=== PATIENT | male | born 2000 | race Caucasian/White ===

== ENCOUNTER 2021-10-22 13:11 | Emergency (ER) | payer MEDICAID ==
[2021-10-22 13:46] LABS: BASOPHILS % (AUTO) 0.4 %; EOSINOPHILS # (AUTO) 0.1 10^3/uL (0.0-0.7); HCT - HEMATOCRIT 45.7 % (42.0-52.0); HGB - HEMOGLOBIN 15.9 g/dL (14.0-18.0); LYMPHOCYTES # (AUTO) 1.8 10^3/uL (1.5-3.5); LYMPHOCYTES % (AUTO) 25.7 %; MEAN CORPUSCULAR HEMOGLOBIN 33.3 pg (27.0-31.0); MEAN CORPUSCULAR HGB CONC 34.8 g/dL (32.0-36.0); MEAN CORPUSCULAR VOLUME 95.6 fL (80.0-94.0); MEAN PLATELET VOLUME 9.4 fL (7.4-11.4); MONOCYTES # (AUTO) 0.7 10^3/uL (0.0-1.0); MONOCYTES % (AUTO) 10.2 %; NEUTROPHILS # (AUTO) 4.5 10^3/uL (1.5-6.6); NEUTROPHILS % (AUTO) 62.6 %; PLT - PLATELET COUNT 223 10^3/uL (130-450); RED BLOOD COUNT 4.78 10^6/uL (4.70-6.10); RED CELL DISTRIBUTION WIDTH 11.9 % (12.0-15.0); WHITE BLOOD COUNT 7.1 x10^3/uL (4.8-10.8)
[2021-10-22 13:59] LABS: ALBUMIN 4.6 g/dL (3.2-5.5); ALBUMIN/GLOBULIN RATIO 1.5 (1.0-2.2); BILIRUBIN,TOTAL 0.5 mg/dL (0.2-1.0); CALCIUM 9.4 mg/dL (8.5-10.3); POTASSIUM 3.9 mmol/L (3.5-5.0); TOTAL PROTEIN 7.6 g/dL (6.7-8.2)
[2021-10-22 14:18] LABS: BILIRUBIN,URINE NEGATIVE (NEGATIVE); GLUCOSE, URINE (UA) NEGATIVE (NEGATIVE); KETONES,URINE (UA) NEGATIVE (NEGATIVE); LEUKOCYTE ESTERASE, URINE NEGATIVE (NEGATIVE); NITRITE,URINE NEGATIVE (NEGATIVE); OCCULT BLOOD,URINE NEGATIVE (NEGATIVE); PROTEIN,URINE NEGATIVE (NEGATIVE); UROBILINOGEN,URINE 0.2 (NORMAL) E.U./dL (NORMAL)
[2021-10-22 14:20] LABS: CLARITY,URINE CLEAR (CLEAR)
--- NOTE | 2021-10-22 15:28 | ED Physician Documentation ---
PD HPI ABD PAIN - Stated complaint Stated Complaint: LT SIDE PX - Chief complaint Chief Complaint: Abd Pain - History obtained from History obtained from: Patient - Additional information Additional information: Patient comes emergency department for chief complaint of left flank pain for 3 days. He states that when he feels pain it is a sharp pain, but unless he moves, he does not really have any pain at all. No other symptoms accompanying. No fevers or chills. No nausea, vomiting, dysuria, or right-sided abdominal pain. No constipation. The patient has occasional watery diarrhea, but this is inconsistent. He has not been doing any physical labor lately. No blood in his urine. Patient has no history of kidney stones. No history of diverticulitis. No other complaints at this time. Review of Systems Ten Systems: 10 systems reviewed and negative Constitutional: reports: Reviewed and negative Eyes: reports: Reviewed and negative Ears: reports: Reviewed and negative Nose: reports: Reviewed and negative Throat: reports: Reviewed and negative Cardiac: reports: Reviewed and negative Respiratory: reports: Reviewed and negative GI: reports: Abdominal Pain, Reviewed and negative : reports: Reviewed and negative Skin: reports: Reviewed and negative Musculoskeletal: reports: Reviewed and negative Neurologic: reports: Reviewed and negative Psychiatric: reports: Reviewed and negative Endocrine: reports: Reviewed and negative Immunocompromised: reports: Reviewed and negative PD PAST MEDICAL HISTORY - Present Medications Home Medications: Ambulatory Orders Medication Instructions Recorded Confirmed No Known Home Medications 10/22/21 10/22/21 - Allergies Allergies/Adverse Reactions: Allergies Allergy/AdvReac Type Severity Reaction Status Date / Time No Known Drug Allergies Allergy Verified 10/22/21 13:20 PD ED PE NORMAL - Vitals Vital signs reviewed: Yes - General General: Alert and oriented X 3, No acute distress, Well developed/nourished - HEENT HEENT: Atraumatic, PERRL, EOMI, Moist mucous membranes - Neck Neck: Supple, no meningeal sign - Cardiac Cardiac: RRR, No murmur, Strong equal pulses - Respiratory Respiratory: No respiratory distress, Clear bilaterally - Abdomen Abdomen: Soft, Non distended, Other (Left flank tenderness.) - Derm Derm: Normal color, Warm and dry, No rash - Extremities Extremities: No deformity, No edema - Neuro Neuro: Alert and oriented X 3, 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, Normal speech - Psych Psych: Normal mood, Normal affect Results - Vitals Vitals: Vital Signs - 24 hr 10/22/21 13:20 Temperature 36.8 C Heart Rate 80 Respiratory 18 Rate Blood Pressure 125/71 O2 Saturation 99 Oxygen O2 Source Room air - Labs Labs: Laboratory Tests 10/22/21 10/22/21 10/22/21 13:32 13:43 13:43 WBC 7.1 RBC 4.78 Hgb 15.9 Hct 45.7 MCV 95.6 H MCH 33.3 H MCHC 34.8 RDW 11.9 L Plt Count 223 MPV 9.4 Neut # (Auto) 4.5 Lymph # (Auto) 1.8 [place] # (Auto) 0.7 Eos # (Auto) 0.1 Baso # (Auto) 0.0 Absolute Nucleated RBC 0.00 Nucleated RBC % 0.0 Sodium 140 Potassium 3.9 Chloride 102 Carbon Dioxide 28 Anion Gap 10.0 BUN 17 Creatinine 1.0 Estimated GFR (MDRD) 93 Glucose 105 H Calcium 9.4 Total Bilirubin 0.5 AST 25 ALT 53 Alkaline Phosphatase 49 Total Protein 7.6 Albumin 4.6 Globulin 3.0 Albumin/Globulin Ratio 1.5 Lipase 21 L Urine Color YELLOW Urine Clarity CLEAR Urine pH 6.0 Ur Specific [place] >=1.030 H Urine Protein NEGATIVE Urine Glucose (UA) NEGATIVE Urine Ketones NEGATIVE Urine Occult Blood NEGATIVE Urine Nitrite NEGATIVE Urine Bilirubin NEGATIVE Urine Urobilinogen 0.2 (NORMAL) Ur Leukocyte Esterase NEGATIVE Ur Microscopic Review NOT INDICATED Urine Culture Comments NOT INDICATED PD MEDICAL DECISION MAKING - ED course Complexity details: reviewed results, re-evaluated patient, considered differential, d/w patient ED course: The patient overall was well-appearing and his labs were unremarkable. Urine did not show any blood. I discussed with the patient that while I would consider diverticulitis, urinary calculus, urinary tract infection, or gastric pathology, the patient really does not have any symptoms pointing to any of these things. Given that he mainly has the pain when he moves, I feel that a musculoskeletal etiology is most likely. I have discussed with the patient the possibility of shingles, which patient never has had before. At this point in time, the patient has declined to have any imaging. We have discussed home management of symptoms, as well as usual indications for return. Departure - Departure Disposition: 01 Home, Self Care Clinical Impression: Flank pain Condition: Stable Instructions: ED Flank Pain Uncertain Cause Comments: Your labs and urinalysis look great. As we have discussed, there are a number of things that could potentially cause pain on the left, but you do not have the other features, either by symptoms or by test findings, that would indicate any of these things. Your appendix is on the right side of your abdomen, down low, so this pain does not indicate appendicitis. Given that you really not have the pain unless you move, is most likely to be a musculoskeletal source that is causing the pain. We have also discussed the possibility of shingles. If you do break out in a blisterlike rash along the area where you have had pain, you will need to talk to your doctor about getting on an antiviral medicine to help hasten the resolution of symptoms. At this point in time, you may take ibuprofen and/or Tylenol to help with the discomfort. You also may use ice, heat, and stretching to help, as well.
[2021-10-22 15:54] VITALS: BP 120/89
== END 2021-10-22 15:54 | disposition home or self-care (01) ==
LOC: ED 13:11
DX: R10.9 Unspecified abdominal pain (principal)
CPT/HCPCS: 36415; 80053; 81001; 81003; 83690; 85025; 87086; 99282; 99283